=== PATIENT | female | born 1950 | race Two or more races ===

== ENCOUNTER 2023-12-12 07:05 | Day surgery (SDC) | payer OTHER, MEDICAID ==
[~2023-12-12] VITALS: Ht 160 cm; Wt 85.3 kg
[2023-12-12] VITALS (7 sets, daily range): BP systolic 95–109; BP diastolic 43–52; PULSE 63–69; RESP 14–19; TEMP 98; O2SAT 94–96
[~2023-12-12 07:05] MED LIST: AMLO1TAB22 PO; CHOL20007 PO; CLOB0.055 TOP; IRBE300T43 PO; MAGN500T17 PO; METO-289 PO; SERT-206 PO; ZINC50TA7 PO
[2023-12-12] MEDS ORDERED: LIDOCAINE 2%HCL (LOCAL ANESTH.) INJ 20ML MDV ONE (07:52)
[2023-12-12] MEDS ORDERED: HEPARIN IN NS 1000Units/500mL 1,500 ML ONE (07:52)
[2023-12-12] MEDS ORDERED: IOHEXOL 350 MG/ML 100ML IJ ONE (07:53)
[2023-12-12] MEDS ORDERED: GELATIN 1 SPONGE SIZE 50 TOP ONE (07:53)
[2023-12-12] MEDS ORDERED: IODIXANOL 320MG/ML 100ML BTL IV ONE (07:54)
[2023-12-12] MEDS ORDERED: fentaNYL CITRATE 100 MCG/2 ML VL ONE (08:41)
[2023-12-12] MEDS ORDERED: MIDAZOLAM HCL 2MG/2ML 2ml VIAL (1mg/ml) ONE (08:41)
[2023-12-12] MEDS ORDERED: ANGIOMAX 250 MG VIAL IV ONE (08:41)
[2023-12-12] MEDS ORDERED: VERAPAMIL 2.5MG/ML INJ 2ML VIAL IV ONE (08:41)
[2023-12-12] MEDS ORDERED: SODIUM CHL 0.9% 0 ML ONE (08:41)
[2023-12-12] MEDS ORDERED: HEPARIN SODIUM (PORCINE) 5000 UNITS/ML 1ML VIAL ONE (08:41)
[2023-12-12] MEDS ORDERED: IRBE150T49 PO (09:56)
== END 2023-12-12 11:30 | disposition home or self-care (01) ==
LOC: CATH 07:05
PROVIDERS: ATTEND Internal Medicine
DX: R94.39 Abnormal result of other cardiovascular function study (principal); I25.118 Atherosclerotic heart disease of native coronary artery with other forms of angina pectoris; I11.9 Hypertensive heart disease without heart failure; Z79.899 Other long term (current) drug therapy; Z98.890 Other specified postprocedural states; Z82.49 Family history of ischemic heart disease and other diseases of the circulatory system
CPT/HCPCS: 93005; 93458; C1725; C1769; C1894; J1644; J2250; J3010; J7030; Q9967; 99152